=== PATIENT | female | born 2000 | race Caucasian/White ===

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

== ENCOUNTER → 2019-03-02 | Outpatient (CLI) | payer BC ==
[2019-03-02 14:12] VITALS: BP 111/63
--- NOTE | 2019-03-02 14:12 | Cardiology Stress Test Report ---
Stress Test Report Date of Procedure/Referring: Date of Procedure: Mar 02, 2019 PCP Porsche Gudino MD Admitting Physician No,Local Physician Indications: palpitation Baseline Heart Rate: 89 Baseline Blood Pressure: Blood Pressure Systolic: 111 Blood Pressure Diastolic: 63 Baseline EKG: Baseline EKG: normal sinus rhythm Summary/Conclusion: Summary: In summary, the patient started exercising with a baseline heart rate, blood pressure and EKG mentioned above Patient was able to exercise for a total of 9 minutes on Vinicius protocol, 10.5 METs Maximum heart rate 186 Maximum blood pressure 110/52 Stress EKG Minimal nondiagnostic changes Recovery EKG Return to baseline Conclusion: 1. Good exercise tolerance for a total of 9 minutes on Vinicius protocol, 10.5 METs, achieving 93 percent of maximum expected heart rate 2. Minimal nondiagnostic EKG changes with exercise returned to baseline during recovery 3. No arrhythmia was noted PORSCHE GUDINO MD Mar 02, 2019 2:12 pm
== END ==
LOC: CARD 09:31
PROVIDERS: ATTEND Internal Medicine Cardiovascular Disease
DX: R00.2 Palpitations (principal); R42 Dizziness and giddiness
CPT/HCPCS: 93306

== ENCOUNTER → 2019-05-06 | Outpatient (CLI) | payer BC ==
[~2019-05-06] MED LIST: RT-ALBUTEROL SULF 2.5 MG/3 ML PRE-MIX VIAL INH ONE; RT-ALBUTEROL SULF 2.5 MG/3 ML PRE-MIX VIAL ONE
== END ==
LOC: RT 09:02
PROVIDERS: ATTEND Internal Medicine Cardiovascular Disease
DX: R00.2 Palpitations (principal); R42 Dizziness and giddiness
CPT/HCPCS: 94060; 94726; 94729

== ENCOUNTER → 2019-06-21 | Outpatient (CLI) | payer BC ==
[~2019-06-21] MED LIST changes: +CATHETER FLUSH 10 ML SYR IV PRN; -RT-ALBUTEROL SULF 2.5 MG/3 ML PRE-MIX VIAL INH ONE; -RT-ALBUTEROL SULF 2.5 MG/3 ML PRE-MIX VIAL ONE
--- NOTE | 2019-06-21 15:33 | Diagnostic Imaging Report ---
EXAMINATION: Ventilation/perfusion lung scan. INDICATION: Pulmonary hypertension. TECHNIQUE: This study was performed following administration of 5.31 mCi of 99m-technetium MAA for the perfusion sequence and 40.9 mCi of 99m-technetium DTPA for the ventilation portion of the exam. Multiple projections of both lungs were obtained. COMPARISON: There are no previous exams available for comparison. FINDINGS: There is generalized distribution of the radiotracer throughout both lungs. There is no ventilation/perfusion mismatch to indicate a pulmonary embolus. There is no defect within either lung to suggest pulmonary hypertension either. IMPRESSION: 1. There is a low probability for pulmonary embolus. 2. The even distribution of the radiotracer throughout both lungs would weigh against pulmonary hypertension. Dictated by: Dictated on workstation # [id number]
== END ==
LOC: CARD 13:54
PROVIDERS: ATTEND Internal Medicine Critical Care Medicine
DX: I27.20 Pulmonary hypertension, unspecified (principal); J44.9 Chronic obstructive pulmonary disease, unspecified
CPT/HCPCS: 78582

== ENCOUNTER → 2019-06-27 | Outpatient (CLI) | payer BC ==
--- NOTE | 2019-06-27 15:35 | Diagnostic Imaging Report ---
INDICATION: Hypertension, COPD and cough. TIME OF EXAM: 03:03 p.m. COMPARISON: No prior studies are available for comparison. FINDINGS: Heart size is normal. The lungs appear to be clear. No infiltrates are seen. No effusion or pneumothorax is identified. IMPRESSION: No acute cardiopulmonary process is detected. Dictated by: Dictated on workstation # [id number]
== END ==
LOC: RAD 14:49
PROVIDERS: ATTEND Nurse Practitioner Family
DX: I27.20 Pulmonary hypertension, unspecified (principal); J44.9 Chronic obstructive pulmonary disease, unspecified; I10 Essential (primary) hypertension; Z78.9 Other specified health status
CPT/HCPCS: 71046

== ENCOUNTER → 2019-08-02 | Outpatient (CLI) | payer BC ==
[~2019-08-02] MED LIST changes: -CATHETER FLUSH 10 ML SYR IV PRN; +HOLD METFORMIN - RECEIVED CONTRAST 20 ML VIAL IV SCH; +IOHEXOL 350 MG/ML 100 ML (OMNIPAQUE 350) VIAL IV ONE; +NS 100 ML (IVPB) BAG IV ONE
--- NOTE | 2019-08-02 14:51 | Diagnostic Imaging Report ---
PROCEDURE: CT chest with contrast only. TECHNIQUE: Multiple contiguous axial images were obtained through the chest after administration of intravenous contrast. Auto Exposure Controls were utilized during the CT exam to meet ALARA standards for radiation dose reduction. INDICATION: Cough. COMPARISON: No prior chest CT studies are available for comparison. FINDINGS: No axillary lymphadenopathy is detected. There are numerous collateral vessels over the right chest, which could indicate subclavian stenosis. No mediastinal or hilar lymphadenopathy is detected. No pericardial or pleural fluid is identified. No pulmonary infiltrates are detected. No nodules or masses are detected. The upper abdomen is unremarkable. IMPRESSION: 1. Unremarkable CT of the chest, without evidence of thoracic lymphadenopathy, chest effusion, or pulmonary infiltrate. 2. There are some collateral vessels over the right chest. This can be seen with subclavian vein stenosis. No other significant abnormality is detected. Dictated by: Dictated on workstation # [id number]
== END ==
LOC: RAD 13:07
PROVIDERS: ATTEND Nurse Practitioner Family
DX: J44.9 Chronic obstructive pulmonary disease, unspecified (principal); I27.20 Pulmonary hypertension, unspecified; Z72.0 Tobacco use
CPT/HCPCS: 71260

== ENCOUNTER 2019-08-04 13:53 | Outpatient (CLI) | payer BC | END 2019-08-04 14:30 | disposition home or self-care (01) | LOC: SLEEP 13:53 | PROVIDERS: ATTEND Nurse Practitioner Family | DX: G47.10 Hypersomnia, unspecified (principal); J44.9 Chronic obstructive pulmonary disease, unspecified; I27.20 Pulmonary hypertension, unspecified ==

== ENCOUNTER → 2019-11-24 | Outpatient (CLI) | payer BC ==
--- NOTE | 2019-11-24 14:30 | Diagnostic Imaging Report ---
INDICATION: Lower abdominal pain and cramping. FINDINGS: Bowel gas pattern is unremarkable. No evidence for obstruction. No pathological fecal loading. No air fluid levels or free gas. The lung bases appear clear. IMPRESSION: Unremarkable abdominal radiographs. Dictated by: Dictated on workstation # [id number]
== END ==
LOC: RAD FS 14:06
PROVIDERS: ATTEND Nurse Practitioner Family
DX: R10.32 Left lower quadrant pain (principal); R10.31 Right lower quadrant pain
CPT/HCPCS: 74019

== ENCOUNTER → 2019-12-01 | Outpatient (CLI) | payer BC ==
--- NOTE | 2019-12-01 09:47 | Diagnostic Imaging Report ---
PROCEDURE: CT pelvis with contrast. TECHNIQUE: Oral and intravenous contrast were administered with pelvic CT performed. Auto Exposure Controls were utilized during the CT exam to meet ALARA standards for radiation dose reduction. INDICATION: Cramping pelvic pain. There are no prior studies available for comparison. The appendix was not well visualized but there are no indirect signs of acute appendicitis. There is no pelvic mass or free fluid collection noted. The uterus is anteverted and does not appear to be enlarged. The endometrial line is thickened measuring 10 mm (normal 5 mm or less). This finding is nonspecific. Correlation with patient's menstrual cycle recommended. There is no focal mass involving the uterus to suggest a fibroid. The ovaries are generally unremarkable. The urinary bladder is only partially filled with contrast and consequently difficult to assess. There does appear to be a fair amount of fecal material in the rectosigmoid portion of the colon. The bone windows show no evidence for a fracture or for destructive lesion. IMPRESSION: 1. There is no acute pelvic abnormality noted. 2. The endometrium is slightly thickened. This finding is nonspecific however. Correlation with patient's menstrual cycle recommended. 3. There is a fair amount of fecal material in the rectosigmoid portion of the colon. Dictated by: Dictated on workstation # [id number]
== END ==
LOC: RAD 08:37
PROVIDERS: ATTEND Family Medicine
DX: R10.2 Pelvic and perineal pain (principal)
CPT/HCPCS: 72193